=== PATIENT | male | born 1985 | race Caucasian/White ===

== ENCOUNTER 2021-12-23 05:12 | Emergency (ER) | payer SELFPAY ==
[~2021-12-23] VITALS: Ht 170.2 cm; Wt 129.7 kg
[2021-12-23 05:15] VITALS: BP 138/81
--- NOTE | 2021-12-23 05:24 | NUR ---
PT TAKEN TO BED 5
--- NOTE | 2021-12-23 05:45 | NUR ---
RECEIVED IN BED 6 VERY ANXIOUS C/O DIZZINESS AFTER TAKING MOTRIN
[2021-12-23] MEDS ORDERED: NACL 0.9% 1,000 ML IV ONE (05:55)
[2021-12-23] MEDS ORDERED: METOCLOPRAMIDE 10 MG/2 ML INJ VIAL IVP ONE (05:55)
[2021-12-23] MEDS ORDERED: MECLIZINE 25 MG TAB PO ONE (05:55)
--- NOTE | 2021-12-23 06:03 | NUR ---
Dr. Myers examining patient.
--- NOTE | 2021-12-23 06:15 | NUR ---
IV ESTABLISHED. LABS DRAWN
[2021-12-23 06:28] LABS: BASOPHILS # (AUTO) 0.1 K/uL (0.00-0.22); BASOPHILS % (AUTO) 0.6 % (0.0-2.0); EOSINOPHILS # (AUTO) 0.5 K/uL (0-0.4); HEMATOCRIT 47.1 % (36-52); LYMPHOCYTES # (AUTO) 1.6 K/uL (2.0-11.5); LYMPHOCYTES % (AUTO) 15.5 % (20.5-51.1); MEAN CORPUSCULAR HEMOGLOBIN 30 pg (27-31); MEAN CORPUSCULAR HGB CONC 34 g/dL (33-37); MONOCYTES % (AUTO) 9.7 % (1.7-9.3); NEUTROPHILS # (AUTO) 7.3 K/uL (1.8-7.7); NEUTROPHILS % (AUTO) 69.2 % (42.2-75.2); PLATELET COUNT (AUTO) 240 K/uL (140-450); RED BLOOD CELL COUNT(AUTO) 5.35 MIL/uL (4.20-6.10); RED CELL DISTRIBUTION WIDTH 13.4 % (11.6-13.7); WHITE BLOOD COUNT (AUTO) 10.5 K/uL (4.8-10.8)
[2021-12-23] MEDS ORDERED: LORazepam 2 MG/ML VIAL IVP ONE (06:35)
[2021-12-23 07:09] LABS: ANION GAP 12.7 (8-16); CARBON DIOXIDE 25.2 mmol/L (21-32); CREATININE 0.8 mg/dL (0.6-1.3); POTASSIUM 3.9 mmol/L (3.5-5.1); TOTAL BILIRUBIN 0.7 mg/dL (0.0-1.0)
[2021-12-23 07:20] LABS: ALBUMIN 3.6 g/dL (3.4-5.0)
--- NOTE | 2021-12-23 07:25 | NUR ---
REPORT RECEIVED FROM LUZ AVILA FOR PATIENT CONTINUITY OF CARE.
[2021-12-23] MEDS ORDERED: ONDA-188 PO (07:46)
[2021-12-23] MEDS ORDERED: ZOLP5TAB1 PO (07:46)
[2021-12-23 08:05] VITALS: BP 124/76
--- NOTE | 2021-12-23 08:05 | NUR ---
Patient discharged with v/s stable. Written and verbal after care instructions ABOUT PANIC ATTACK, INSOMNIA AND DIZZINESS given and explained. Patient alert, oriented and verbalized understanding of instructions. Ambulatory with steady gait. All questions addressed prior to discharge. ID band removed. Patient advised to follow up with PMD. Rx of JEZ given.
== END 2021-12-23 08:05 | disposition home or self-care (01) ==
LOC: MED 05:12
DX: R11.10 Vomiting, unspecified (principal); F41.9 Anxiety disorder, unspecified; G47.00 Insomnia, unspecified; F17.200 Nicotine dependence, unspecified, uncomplicated; Z79.899 Other long term (current) drug therapy
CPT/HCPCS: 36415; 80053; 84484; 85025; 93005; 96361; 96374; 96375; 99284; J2060; J2765; J7030; J8597